=== PATIENT | male | born 1970 | race Caucasian/White ===

== ENCOUNTER 2022-04-08 08:18 | Emergency (ER) | payer BC, SELFPAY ==
[2022-04-08 08:44] VITALS: BP 142/85; PULSE 67; RESP 16; TEMP 36.9; O2SAT 99
--- NOTE | 2022-04-08 09:03 | ED.GENADULT ---
HPI - General Adult General Chief complaint: Upper Respiratory Infection Stated complaint: sore throat Source: patient Mode of arrival: ambulatory Limitations: no limitations History of Present Illness HPI narrative: Patient presents for evaluation of sore throat for the last 2 to 3 days. No fever, chills, nausea, vomiting, diarrhea. He has an occasional dry cough. No recent sick contacts to his knowledge. No personal history of COVID. He has not received a COVID vaccination. He does not smoke. He has not been taking any medication for his symptoms. He is from [place] and stopped in area to see family. He is leaving for a trip to [place] and wanted to ensure he is not sick prior to leaving. Related Data Allergies Allergy/AdvReac Type Severity Reaction Status Date / Time No Known Allergies Allergy Verified 04/08/22 08:44 Review of Systems Review of Systems: CONSTITUTIONAL: Denies fever, chills, or sweats. EYES: Denies visual changes, redness, or discharge. ENT: Reports sore throat. Denies rhinorrhea, congestion, or otalgia. CARDIOVASCULAR: Denies chest pain, palpitations, or edema. RESPIRATORY: Reports occasional cough. Denies SOB. GASTROINTESTINAL: Denies abdominal pain, nausea, vomiting, or diarrhea. GENITOURINARY: Denies dysuria or hematuria. SKIN: Denies rash or itching. MUSCULOSKELETAL: Denies back pain, joint pain, or myalgia. NEUROLOGIC: Denies headache, numbness, dizziness, or weakness. PSYCHIATRIC: Denies anxiety or depression. [facility] Past Medical History Medical History No pertinent past medical history Surgical History Surgical History No pertinent past surgical history Family History Family History Father Colon cancer Social History Social History Smoking status: Never smoker Substance use: never Living arrangements: with family Gender identity (if verbalized by the patient): Male Sexual Orientation (if Verbalized by the Patient): Straight or Heterosexual Spiritual care concerns: No Exam Narrative: GENERAL: Well-appearing, well-nourished, and in no acute distress. HEAD: Normocephalic, atraumatic. EYES: PERRLA and EOMI. ENT: Nares clear, no rhinorrhea or epistaxis. Mucous membranes moist. There is posterior pharyngeal erythema without exudate. Uvula is midline. Bilateral TMs pearly cat nonbulging NECK: Supple. No adenopathy or masses. No carotid bruits or JVD CHEST: Clear to auscultation. No respiratory distress. No wheezes rales or rhonchi HEART: Regular rate and rhythm. No murmur heard. Normal peripheral pulses. ABDOMEN: Soft, nontender, nondistended, normal active bowel sounds. EXTREMITIES: Normal range of motion. No edema. SKIN: Warm, dry, no rash. NEURO: No focal deficits. Alert and oriented x3. PSYCH: Normal mood and affect. Course Course Emergency Course: This is a 51-year-old male that presented for evaluation of sore throat. Rapid strep was negative. He declined COVID testing. He has posterior pharyngeal erythema and is leaving town so will provide script for amoxicillin. He will only start taking if symptoms persist. He should follow up outpatient for further evaluation and treatment and return for worsening symptoms. Pt in agreement with plan of care Level of Care: Express Care Visit Vital Signs Vital signs: Vital Signs Temperature 36.9 C 04/08/22 08:44 Pulse Rate 67 04/08/22 08:44 Respiratory Rate 16 04/08/22 08:44 Blood Pressure 142/85 H 04/08/22 08:44 Pulse Oximetry 99 04/08/22 08:44 Oxygen Delivery Room Air 04/08/22 08:44 Temperature 36.9 C 04/08/22 08:44 Pulse Rate 67 04/08/22 08:44 Respiratory Rate 16 04/08/22 08:44 Blood Pressure 142/85 H 04/08/22 08:44 Pulse Oximetry
== END 2022-04-08 09:05 | disposition home or self-care (01) ==
PROVIDERS: Emergency Provider Nurse Practitioner
DX: J03.90 Acute tonsillitis, unspecified (principal); Z28.310 Unvaccinated for COVID-19
CPT/HCPCS: 87081; 87880; 99213; G0463